=== PATIENT | male | born 1985 | race Caucasian/White ===

== ENCOUNTER 2017-02-02 19:11 | Emergency (ER) | payer OTHER ==
[~2017-02-02] VITALS: Ht 167.6 cm; Wt 117.9 kg
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
[2017-02-02] MEDS ORDERED: IBUPROFEN 400 MG TABLET ONE (19:39)
[2017-02-02] MEDS ORDERED: IBUPROFEN 400 MG TABLET PO ONE (20:00)
--- NOTE | 2017-02-02 20:43 | NUR ---
CALLED ADILENE FOR READ ON X RAYS
[2017-02-02] MEDS ORDERED: HYDROCODONE/APAP 10/325MG 1 EA TABLET ONE (20:51)
[2017-02-02] MEDS ORDERED: ONDANSETRON 4 MG TAB.RAPDIS ONE (20:51)
[2017-02-02] MEDS ORDERED: HYDROCODONE/APAP 10/325MG 1 EA TABLET PO ONE (21:00)
[2017-02-02] MEDS ORDERED: ONDANSETRON 4 MG TAB.RAPDIS SL ONE (21:00)
[2017-02-02 21:39] VITALS: BP 130/88
== END 2017-02-02 21:44 | disposition home or self-care (01) ==
LOC: ER 19:15
DX: S82.891A Other fracture of right lower leg, initial encounter for closed fracture (principal); S20.211A Contusion of right front wall of thorax, initial encounter; I10 Essential (primary) hypertension; F17.200 Nicotine dependence, unspecified, uncomplicated; V86.99XA Unspecified occupant of other special all-terrain or other off-road motor vehicle injured in nontraffic accident, initial encounter; Y93.89 Activity, other specified; Y92.89 Other specified places as the place of occurrence of the external cause; Y99.9 Unspecified external cause status
CPT/HCPCS: 29515; 71100; 73610; 99284; 99406; A4606; Q0162; Z7610

== ENCOUNTER → 2017-06-10 | Emergency (ER) | payer MEDICAID, OTHER ==
[~2017-06-10] VITALS: Ht 182.9 cm; Wt 113.4 kg
[2017-06-10 16:54] VITALS: BP 147/102
== END | disposition home or self-care (01) ==
LOC: ER 16:53
DX: M25.571 Pain in right ankle and joints of right foot (principal); I10 Essential (primary) hypertension
CPT/HCPCS: 73610-TC; A4606; Z7610